=== PATIENT | female | born 2000 | race Caucasian/White ===

== ENCOUNTER 2020-03-29 20:03 | Emergency (ER) | payer OTHER ==
[~2020-03-29] VITALS: Ht 165.1 cm; Wt 55.3 kg
[2020-03-29 20:16] VITALS: BP 130/92
--- NOTE | 2020-03-29 20:20 | NUR ---
PT AMBULATED TO [facility] WITH STEADY GAIT.
--- NOTE | 2020-03-29 20:26 | NUR ---
19F PRESENT TO ED FOR C/O LEFT REGION PELVIC PAIN X 1 DAY. PT STATES PAIN IS SHARP AND CONTINOUS. PT STATES SHE HAS PAINFUL URINATION. PT STATES THIS IS HER FIRST . NOCOMPLICATIONS OF AT THIS TIME. G1 T0 L0. -VAGINAL BLEEDING, -CONSTIPATION, -VOMITING, + NAUSEA PT REPORTS TAKING SUPPLEMENTS. NEGATIVE FOR COVID SCREENING.
--- NOTE | 2020-03-29 20:29 | NUR ---
Dr. Scanlon examining patient.
--- NOTE | 2020-03-29 20:44 | NUR ---
LABS DRAWN AND COLLECTED.
--- NOTE | 2020-03-29 20:46 | NUR ---
PT TAKEN TO ULTRASOUND
[2020-03-29 20:55] LABS: APPEARANCE,URINE CLEAR (CLEAR); BASOPHILS # (AUTO) 0.1 K/uL (0.00-0.22); BASOPHILS % (AUTO) 0.5 % (0.0-2.0); BILIRUBIN,URINE NEGATIVE (NEGATIVE); BLOOD, URINE 1+ (NEGATIVE); COLOR,URINE YELLOW (YELLOW); EOSINOPHILS # (AUTO) 0.2 K/uL (0-0.4); EOSINOPHILS % (AUTO) 1.9 % (0.0-4.0); HEMATOCRIT 43.4 % (36-48); HEMOGLOBIN 15.2 g/dL (12.0-16.0); LEUKOCYTE ESTERASE ,URINE 2+ (NEGATIVE); LYMPHOCYTES # (AUTO) 2.8 K/uL (2.5-16.5); LYMPHOCYTES % (AUTO) 26.8 % (20.5-51.1); MEAN CORPUSCULAR HEMOGLOBIN 32 pg (27-31); MEAN CORPUSCULAR HGB CONC 35 g/dL (33-37); MEAN CORPUSCULAR VOLUME 90.6 fL (80-94); MONOCYTES # (AUTO) 0.6 K/uL (0.8-1.0); MONOCYTES % (AUTO) 6.1 % (1.7-9.3); NEUTROPHILS # (AUTO) 6.8 K/uL (1.8-7.7); NEUTROPHILS % (AUTO) 64.7 % (42.2-75.2); NITRITE, URINE NEGATIVE (NEGATIVE); PLATELET COUNT (AUTO) 271 K/uL (140-450); RED BLOOD CELL COUNT(AUTO) 4.79 MIL/uL (4.20-5.40); RED CELL DISTRIBUTION WIDTH 12.4 % (11.6-13.7); UGLUCOSE NEGATIVE (NEGATIVE); WHITE BLOOD COUNT (AUTO) 10.5 K/uL (4.5-11.0)
[2020-03-29 21:11] LABS: ANION GAP 14.6 (8-16); CARBON DIOXIDE 25.8 mmol/L (21-32); CREATININE 0.8 mg/dL (0.6-1.3); POTASSIUM 3.4 mmol/L (3.5-5.1); TOTAL BILIRUBIN 0.3 mg/dL (0.0-1.0)
[2020-03-29 21:14] LABS: WBC,URINE 16-25 (MOD) /HPF (0-5)
--- NOTE | 2020-03-29 21:30 | NUR ---
PT RETURNED FROM CT FOR ULTRASOUND VIA W/C
--- NOTE | 2020-03-29 22:26 | NUR ---
PT IN BED RESTING. NO FURTHER NEEDS AT THIS TIME. BED LOWEST AND LOCKED, RAILS X 2. PT PLACED IN A GOWN FOR PELVIC EXAM.
[2020-03-29 22:39] VITALS: BP 127/96
--- NOTE | 2020-03-29 22:39 | NUR ---
Patient discharged with v/s stable. Written and verbal after care instructions given and explained. Patient alert, oriented and verbalized understanding of instructions. Ambulatory with steady gait. All questions addressed prior to discharge. ID band removed. Patient advised to follow up with PMD. Rx of MACROBID AND TYLENOL given. Patient educated on indication of medication including possible reaction and side effects. Opportunity to ask questions provided and answered.
== END 2020-03-29 22:39 | disposition home or self-care (01) ==
LOC: MED 20:03
DX: O26.831 Pregnancy related renal disease, first trimester (principal); O99.281 Endocrine, nutritional and metabolic diseases complicating pregnancy, first trimester; E87.6 Hypokalemia; R82.71 Bacteriuria; Z3A.01 Less than 8 weeks gestation of pregnancy; Z87.442 Personal history of urinary calculi
CPT/HCPCS: 36415; 76700; 76817; 80053; 81001; 81025; 84702; 85025; 86900; 86901; 87086; 99285; Q0092